=== PATIENT | female | born 1995 | race Caucasian/White ===

== ENCOUNTER 2019-01-11 10:30 | Observation (INO) | payer OTHER, MEDICAID ==
[~2019-01-11] VITALS: Ht 152.4 cm; Wt 70.8 kg
[2019-01-11] MEDS ORDERED: TERBUTALINE SULFATE 1 MG/ML VIAL SUBCUT PRN (11:15)
[2019-01-11] MEDS ORDERED: TERBUTALINE SULFATE 2.5 MG TABLET PO PRN (11:15)
== END 2019-01-11 13:20 | disposition home or self-care (01) ==
LOC: SPU 10:30
PROVIDERS: ADMIT Specialist; ATTEND Specialist
DX: O36.8130 Decreased fetal movements, third trimester, not applicable or unspecified (principal); Z3A.30 30 weeks gestation of pregnancy
CPT/HCPCS: 76819; 81002; G0378

== ENCOUNTER 2019-03-09 20:55 | Inpatient (IN) | payer OTHER, MEDICAID ==
[~2019-03-09] VITALS: Ht 152.4 cm; Wt 75.7 kg
[2019-03-09] MEDS ORDERED: LR 1,000 ML IV ONE (21:20)
[2019-03-09] MEDS ORDERED: TERBUTALINE SULFATE 1 MG/ML VIAL SUBCUT ONE (21:30)
[2019-03-09] MEDS ORDERED: NALBUPHINE HCL 10 MG/ML AMP IVP PRN (21:30)
[2019-03-09] MEDS ORDERED: fentaNYL CITRATE/PF 100 MCG/2 ML AMP ONE (21:40)
[2019-03-09] MEDS ORDERED: ROPIVACAINE 0.2% 100 ML ONE (21:40)
[2019-03-09 21:42] LABS: BASOPHILS % (AUTO) 0.3 % (0.0-2.0); EOSINOPHILS % (AUTO) 0.3 % (0.0-4.0); HEMATOCRIT 34.3 % (36-48); HEMOGLOBIN 11.9 g/dL (12.0-16.0); LYMPHOCYTES # (AUTO) 2.5 K/uL (1.0-5.5); LYMPHOCYTES % (AUTO) 25.1 % (20.5-51.5); MEAN CORPUSCULAR HEMOGLOBIN 30 pg (27-31); MEAN CORPUSCULAR HGB CONC 35 % (32-36); MEAN CORPUSCULAR VOLUME 86 fL (79.0-98.0); MONOCYTES # (AUTO) 0.8 K/uL (0.0-1.0); MONOCYTES % (AUTO) 7.8 % (1.7-9.3); NEUTROPHILS # (AUTO) 6.6 K/uL (1.8-7.7); NEUTROPHILS % (AUTO) 66.5 % (40.0-70.0); PLATELET COUNT (AUTO) 244 K/uL (130-430); RED BLOOD CELL COUNT(AUTO) 3.98 MIL/uL (4.2-6.2); RED CELL DISTRIBUTION WIDTH 14.9 % (9.0-15.0); WHITE BLOOD COUNT (AUTO) 9.9 K/uL (4.8-10.8)
[2019-03-09] MEDS ORDERED: LR 500 ML IV ONE (21:48)
[2019-03-09] MEDS ORDERED: FENT2mCg/mL-ROPIVA0.2%/NS EPID 100 ML EP SCH (22:00)
[2019-03-09] MEDS: LR 1,000 ML IV SCH (22:10)
[2019-03-09] MEDS ORDERED: DIPHENHYDRAMINE INJ 50 MG/ML VIAL IVP PRN (22:30)
[2019-03-09] MEDS ORDERED: ONDANSETRON HCL 4 MG/2 ML VIAL IVP PRN (22:30)
[2019-03-09 23:10] VITALS: BP_SYST 122
[2019-03-10] MEDS ORDERED: ROPIVACAINE 0.2% 100 ML ONE ×2 (03:28→10:24)
[2019-03-10] MEDS ORDERED: OXYTOCIN/0.9 % SODIUM CHLORIDE 1,000 ML IV SCH ×2 (03:54→13:42)
[2019-03-10] MEDS: LR 1,000 ML IV SCH ×2 (05:54→13:20)
[2019-03-10] MEDS ORDERED: ONDANSETRON HCL 4 MG/2 ML VIAL IVP PRN (06:00)
[2019-03-10] MEDS ORDERED: fentaNYL CITRATE/PF 100 MCG/2 ML AMP ONE (10:24)
[2019-03-10] MEDS ORDERED: OXYTOCIN/0.9 % SODIUM CHLORIDE 1,000 ML IV ONE (13:42)
[2019-03-10] MEDS ORDERED: MEASLES,MUMPS&RUBELLA VACC/PF 12500 UNIT/0.5 ML VIAL SUBQ PRN (13:45)
[2019-03-10] MEDS ORDERED: WITCH HAZEL LEAF 1 MED.PAD MED.PAD TP PRN (13:45)
[2019-03-10] MEDS ORDERED: RHO(D) IMMUNE GLOBULIN/MALTOSE 1500 UNITS/1.3 ML (WINHRO) IM PRN (13:45)
[2019-03-10] MEDS ORDERED: HYDROCORTISONE 0.5%, 28.35 GM TOPICAL CREAM TP PRN (13:45)
[2019-03-10] MEDS ORDERED: HYDROcodone/ACETAMIN 5-325 MG TAB (NORCO/ VICODIN) PO PRN (13:45)
[2019-03-10] MEDS ORDERED: OXYCODONE/ACETAMINOPHEN 5-325 TABLET PO PRN (13:45)
[2019-03-10] MEDS ORDERED: SENNOSIDES/DOCUSATE SODIUM 1 TAB TABLET(SENOKOT-S) PO PRN (13:45)
[2019-03-10] MEDS ORDERED: METHYLERGONOVINE MALEATE 0.2 MG TABLET PO PRN (13:45)
[2019-03-10] MEDS ORDERED: ANUSOL 1 EA SUPP.RECT (PREPARATION H) RC PRN (13:45)
[2019-03-10] MEDS ORDERED: DERMOPLAST SPRAY TP PRN (13:45)
[2019-03-10] MEDS ORDERED: DIPH-TET-PERTUS Vaccine 0.5 ML VIAL (ADACEL) I.M. PRN (13:45)
[2019-03-10] MEDS: IBUPROFEN 600 MG TABLET PO SCH ×2 (14:00→18:00)
[2019-03-10] MEDS: DOCUSATE SODIUM 100 MG CAPSULE PO PRN (20:18)
[2019-03-10] MEDS: OXYCODONE/ACETAMINOPHEN 5-325 TABLET PO PRN (20:19)
[2019-03-10] MEDS ORDERED: TEMAZEPAM 15 MG CAPSULE PO PRN (21:00)
[2019-03-11 05:52] LABS: BASOPHILS % (AUTO) 0.2 % (0.0-2.0); EOSINOPHILS # (AUTO) 0.1 K/uL (0.0-0.4); EOSINOPHILS % (AUTO) 0.9 % (0.0-4.0); HEMATOCRIT 30.2 % (36-48); LYMPHOCYTES # (AUTO) 2.5 K/uL (1.0-5.5); LYMPHOCYTES % (AUTO) 23.7 % (20.5-51.5); MEAN CORPUSCULAR HEMOGLOBIN 29 pg (27-31); MEAN CORPUSCULAR HGB CONC 33 % (32-36); MEAN CORPUSCULAR VOLUME 87 fL (79.0-98.0); MONOCYTES # (AUTO) 0.8 K/uL (0.0-1.0); MONOCYTES % (AUTO) 7.3 % (1.7-9.3); NEUTROPHILS # (AUTO) 7.3 K/uL (1.8-7.7); NEUTROPHILS % (AUTO) 67.9 % (40.0-70.0); PLATELET COUNT (AUTO) 211 K/uL (130-430); RED CELL DISTRIBUTION WIDTH 14.8 % (9.0-15.0); WHITE BLOOD COUNT (AUTO) 10.7 K/uL (4.8-10.8)
[2019-03-11] MEDS: IBUPROFEN 600 MG TABLET PO SCH ×3 (06:00→11:43)
[2019-03-11] MEDS: DOCUSATE SODIUM 100 MG CAPSULE PO PRN (07:55)
[2019-03-11] MEDS: OXYCODONE/ACETAMINOPHEN 5-325 TABLET PO PRN ×2 (07:56→14:29)
[2019-03-11] MEDS ORDERED: LIDOCAINE PF 2%, 200 MG/10 ML AMPUL.LUER (EPIDURAL) INJ ONE (17:29)
== END 2019-03-11 17:30 | disposition home or self-care (01) | DRG 807 ==
LOC: OBSVTOIN 20:55 → SPU 20:55
PROVIDERS: ADMIT Specialist; ATTEND Specialist
PROC: 10E0XZZ Delivery of Products of Conception, External Approach (ICD-10-PCS; principal; 2019-03-09)
PROC: 3E0R3BZ Introduction of Anesthetic Agent into Spinal Canal, Percutaneous Approach (ICD-10-PCS; 2019-03-09)
PROC: 00HU33Z Insertion of Infusion Device into Spinal Canal, Percutaneous Approach (ICD-10-PCS; 2019-03-09)
PROC: 0HQ9XZZ Repair Perineum Skin, External Approach (ICD-10-PCS; 2019-03-09)
DX: O70.0 First degree perineal laceration during delivery (principal); Z37.0 Single live birth; Z3A.38 38 weeks gestation of pregnancy
CPT/HCPCS: 36415; 81002-TC; 85025; 86592; 86886; 86900; 86901; 94760; J2001; J2590; J2795; J3010; J7120

== ENCOUNTER 2019-04-20 14:12 | Emergency (ER) | payer MEDICAID, OTHER ==
[~2019-04-20] VITALS: Ht 152.4 cm; Wt 63.0 kg
[2019-04-20 14:20] VITALS: BP_SYST 109
[2019-04-20 15:05] LABS: BILIRUBIN,URINE NEGATIVE (NEGATIVE); BLOOD, URINE 2+ (NEGATIVE); CLARITY/URINE CLEAR (CLEAR); COLOR,URINE YELLOW (YELLOW); GLUCOSE,URINE NEGATIVE (NEGATIVE); KETONES,URINE NEGATIVE (NEGATIVE); LEUKOCYTE ESTERASE ,URINE 3+ (NEGATIVE); NITRITE, URINE NEGATIVE (NEGATIVE); PH,URINE 6.5 (5.0-8.0); PROTEIN URINE NEGATIVE (NEGATIVE); UROBILINOGEN,URINE 0.2 (0.2-1.0)
[2019-04-20 15:33] LABS: BASOPHILS % (AUTO) 0.5 % (0.0-2.0); EOSINOPHILS # (AUTO) 0.1 K/uL (0.0-0.4); EOSINOPHILS % (AUTO) 1.1 % (0.0-4.0); HEMATOCRIT 40.2 % (36-48); HEMOGLOBIN 13.5 g/dL (12.0-16.0); LYMPHOCYTES # (AUTO) 1.5 K/uL (1.0-5.5); LYMPHOCYTES % (AUTO) 31.1 % (20.5-51.5); MEAN CORPUSCULAR HEMOGLOBIN 29 pg (27-31); MEAN CORPUSCULAR HGB CONC 34 % (32-36); MEAN CORPUSCULAR VOLUME 85 fL (79.0-98.0); MONOCYTES # (AUTO) 0.5 K/uL (0.0-1.0); MONOCYTES % (AUTO) 9.6 % (1.7-9.3); NEUTROPHILS # (AUTO) 2.8 K/uL (1.8-7.7); NEUTROPHILS % (AUTO) 57.7 % (40.0-70.0); PLATELET COUNT (AUTO) 234 K/uL (130-430); RED BLOOD CELL COUNT(AUTO) 4.73 MIL/uL (4.2-6.2); RED CELL DISTRIBUTION WIDTH 15.1 % (9.0-15.0); WHITE BLOOD COUNT (AUTO) 4.9 K/uL (4.8-10.8)
[2019-04-20 15:34] LABS: BACTERIA,URINE FEW /HPF (None Seen); MUCUS,URINE None Seen /LPF (None Seen); WBC,URINE 80-100 /HPF (0-3)
[2019-04-20] MEDS ORDERED: cefTRIAXone 1 GM in LIDOCAINE 1%, 20 ML MDV 2.1 ML IM ONE (15:45)
[2019-04-20 16:00] LABS: CALCIUM 9.4 mg/dL (8.4-11.0); CREATININE 0.67 mg/dL (0.55-1.30); POTASSIUM 3.9 mmol/L (3.5-5.1)
[2019-04-20 16:05] LABS: ALBUMIN 3.6 g/dL (3.4-4.8); TOTAL BILIRUBIN 0.2 mg/dL (0.0-1.0)
[2019-04-20 16:40] VITALS: BP_SYST 112
== END 2019-04-20 16:40 | disposition home or self-care (01) ==
LOC: SED 14:12
DX: N39.0 Urinary tract infection, site not specified (principal); R19.7 Diarrhea, unspecified; Z86.2 Personal history of diseases of the blood and blood-forming organs and certain disorders involving the immune mechanism
CPT/HCPCS: 74176; 36415; 80053; 81000; 83690; 85025; 87086; 96372; 99284; J0696; J2001

== ENCOUNTER 2021-08-25 07:51 | Emergency (ER) | payer OTHER ==
[~2021-08-25] VITALS: Ht 154.9 cm; Wt 63.5 kg
[2021-08-25 08:12] VITALS: BP_SYST 109
--- NOTE | 2021-08-25 08:12 | NUR ---
ambulated to bed 3
--- NOTE | 2021-08-25 08:13 | NUR ---
ER at bedside examining patient.
[2021-08-25] MEDS ORDERED: HYDROcodone/ACETAMIN 10-325 MG TAB PO ONE (08:15)
[2021-08-25] MEDS ORDERED: ONDANSETRON 4 MG ODT TAB PO ONE (08:15)
--- NOTE | 2021-08-25 08:15 | NUR ---
Pt. bib with c/o throat pain 07/14, pt. is currently on antibiotics for tooth infection and has scheduled extraction on 08/27 back home in [place], here visiting and thinks infection has worsened and moved to throat, on assessment tonsils red, very swollen and right side of face swollen at cheek area, denies is in service and no sexual contact
[2021-08-25] MEDS ORDERED: IBUPROFEN 800 MG TABLET PO ONE (08:30)
[2021-08-25 08:37] LABS: BASOPHILS % (AUTO) 0.2 % (0.0-2.0); HEMATOCRIT 30.5 % (36-48); HEMOGLOBIN 9.8 g/dL (12.0-16.0); LYMPHOCYTES # (AUTO) 0.5 K/uL (1.0-5.5); LYMPHOCYTES % (AUTO) 6.4 % (20.5-51.5); MEAN CORPUSCULAR HEMOGLOBIN 24 pg (27-31); MEAN CORPUSCULAR HGB CONC 32 % (32-36); MEAN CORPUSCULAR VOLUME 73 fL (79.0-98.0); MONOCYTES # (AUTO) 0.8 K/uL (0.0-1.0); MONOCYTES % (AUTO) 9.7 % (1.7-9.3); NEUTROPHILS % (AUTO) 83.7 % (40.0-70.0); PLATELET COUNT (AUTO) 267 K/uL (130-430); RED BLOOD CELL COUNT(AUTO) 4.18 MIL/uL (4.2-6.2); RED CELL DISTRIBUTION WIDTH 16.1 % (9.0-15.0); WHITE BLOOD COUNT (AUTO) 8.3 K/uL (4.8-10.8)
[2021-08-25 08:48] LABS: ANION GAP 7 (5-15); CALCIUM 7.8 mg/dL (8.4-11.0); CHLORIDE 102 mmol/L (98-107); CREATININE 0.63 mg/dL (0.55-1.30); GLUCOSE 115 mg/dL (70-99); POTASSIUM 3.8 mmol/L (3.5-5.1); SODIUM SERUM 134 mmol/L (136-145); UREA NITROGEN, BLOOD 7 mg/dL (8-21)
[2021-08-25 08:52] LABS: ALANINE AMINOTRANSFERASE 18 U/L (12-78); ALBUMIN 3.5 g/dL (3.4-4.8); ASPARTATE AMINOTRANSFERASE 15 U/L (10-37); C-REACTIVE PROTEIN QUANT 3.1 mg/dL (0-0.5); TOTAL BILIRUBIN < 0.1 mg/dL (0.0-1.0)
[2021-08-25 08:55] LABS: GFR AFRICAN AMERICAN 148 mL/min (>90)
[2021-08-25] MEDS ORDERED: CLIN300C12 PO (09:55)
[2021-08-25] MEDS ORDERED: IBUP-1969 PO (09:55)
[2021-08-25] MEDS ORDERED: ONDA-8 TL (10:01)
[2021-08-25] MEDS ORDERED: HYDR-3917 PO (10:01)
--- NOTE | 2021-08-25 10:07 | NUR ---
Dr. Bernardo prescribed [place] and Zofran per pt. request
[2021-08-25 10:08] VITALS: BP_SYST 111
--- NOTE | 2021-08-25 10:09 | NUR ---
Patient given written and verbal discharge instructions and verbalizes understanding. discussed with patient the results and treatment provided. Patient in stable condition. ID arm band removed. Rx of [place], Zofran, Clindamycin and Motrin given. Patient educated on pain management and to follow up with PMD. Pain Scale 4. Opportunity for questions provided and answered. Medication side effect fact sheet provided.
== END 2021-08-25 10:08 | disposition home or self-care (01) ==
LOC: SED 07:51
DX: K04.7 Periapical abscess without sinus (principal); L03.211 Cellulitis of face
CPT/HCPCS: 36415; 80053; 83605; 85025; 86140; 99284; Q0162